=== PATIENT | female | born 1990 | race Caucasian/White ===

== ENCOUNTER 2017-01-11 22:20 | Emergency (ER) | payer OTHER ==
[2017-01-11] MEDS ORDERED: IBUPROFEN 600 MG TABLET PO STA (23:48)
[2017-01-11] MEDS ORDERED: HYDROcod/ACET 5/325 Prepack 6 PO STA (23:49)
[2017-01-11] MEDS ORDERED: IBUPROFEN 600 MG TABLET PO ONE (23:52)
[2017-01-11] MEDS ORDERED: HYDROcod/ACET 5/325 Prepack 6 PO ONE (23:52)
== END 2017-01-12 00:08 | disposition home or self-care (01) ==
DX: S93.402A Sprain of unspecified ligament of left ankle, initial encounter (principal); X50.1XXA Overexertion from prolonged static or awkward postures, initial encounter; Y93.89 Activity, other specified; Y92.007 Garden or yard of unspecified non-institutional (private) residence as the place of occurrence of the external cause; Y99.8 Other external cause status; I10 Essential (primary) hypertension; E10.9 Type 1 diabetes mellitus without complications; F17.200 Nicotine dependence, unspecified, uncomplicated
CPT/HCPCS: 99282; 99283; A9270

== ENCOUNTER 2017-06-09 21:16 | Emergency (ER) | payer OTHER ==
[2017-06-09 22:07] LABS: BILIRUBIN,URINE NEGATIVE (NEGATIVE)
[2017-06-09 22:21] LABS: HCG UR QUAL NEGATIVE; UA w/ MICROSCOPIC CHARGE YES
[2017-06-09 22:22] LABS: UR CULTURE IF IND NOT INDICATED
--- NOTE | 2017-06-09 22:25 | ED Physician Documentation ---
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 No: Fever, Nausea, Vomiting, Diarrhea, Constipation Recently seen: Clinic - Additional information Additional information: c/o midline pelvic pain x 4-5 hours. Vaginal bleeding has been ongoing ( intermittently) since mid-April. She had IUD placed 2 weeks ago. She had US (SURES[facility] ) 2 days ago, reportedly (per patient) showed left ovarian cyst and thickened endometrium. She says she wasn't having pain until tonight. Review of Systems Constitutional: denies: Fever GI: reports: Abdominal Pain (pelvic pain). denies: Nausea, Constipation, Diarrhea : reports: Vaginal bleeding. denies: Dysuria, Frequency Musculoskeletal: denies: Back pain PD PAST MEDICAL HISTORY - Past Medical History Past Medical History: Yes Cardiovascular: Hypertension Respiratory: None Neuro: Headache/migraine Endocrine/Autoimmune: Type 2 diabetes GI: None CLARITY DEVELOPER: None : None HEENT: None Psych: Anxiety Musculoskeletal: None Derm: None - Past Surgical History Past Surgical History: Yes HEENT: Tonsil/Adenoidectomy - Present Medications Home Medications: Ambulatory Orders Medication Instructions Recorded Confirmed Butalb/Acetaminophen/Caffeine PRN 05/28/15 05/28/15 [[id number] [id number]] Ciprofloxacin [Cipro] 500 mg PO Q12H 14 Days 05/28/15 Hydrocodone/Acetaminophen 1 - 2 each PO Q6H PRN #15 tablet 05/28/15 [Hydrocodon-Acetaminophen 5-325] Ondansetron Odt [Zofran] 4 mg TL Q6H PRN #10 tablet 05/28/15 HYDROcod/ACETAM 5/325 [[place] 5/325] 1 - 2 ea PO Q6H PRN #15 tablet 06/10/17 - Allergies Allergies/Adverse Reactions: Allergies Allergy/AdvReac Type Severity Reaction Status Date / Time No Known Drug Allergies Allergy Verified 05/28/15 17:00 - Social History Does the pt smoke?: No Smoking Status: Former smoker Does the pt drink ETOH?: No Does the pt have substance abuse?: No - Immunizations Immunizations are current?: Yes - POLST Patient has POLST: No PD ED PE NORMAL - Vitals Vital signs reviewed: Yes - General General: Alert and oriented X 3, No acute distress, Well developed/nourished - Cardiac Cardiac: RRR, No murmur - Respiratory Respiratory: No respiratory distress, Clear bilaterally - Abdomen Abdomen: Soft, Non tender, Non distended, Other (obese) - Back Back: No CVA TTP - Derm Derm: Normal color, Warm and dry Results - Vitals Vitals: Vital Signs - 24 hr 06/09/17 06/10/17 21:34 01:13 Temperature 36.7 C 36.7 C Heart Rate 73 75 Respiratory 18 19 Rate Blood Pressure 129/93 H 134/87 H O2 Saturation 98 96 Oxygen O2 Source Room air - Labs Labs: Laboratory Tests 06/09/17 06/09/17 06/09/17 21:41 22:56 22:56 WBC 7.1 RBC 4.20 Hgb 12.2 Hct 37.1 MCV 88.3 MCH 29.1 MCHC 33.0 RDW 14.3 Plt Count 319 MPV 7.1 L Neut # 3.2 Lymph # 3.1 Bonner # 0.6 Eos # 0.2 Baso # 0.0 Absolute Nucleated RBC 0.00 Nucleated RBCs 0.0 Sodium 137 Potassium 3.4 L Chloride 103 Carbon Dioxide 26 Anion Gap 8.0 BUN 18 Creatinine 0.9 Estimated GFR (MDRD) 75 L Glucose 97 Calcium 9.5 Urine Color RED/BLOODY Urine Clarity BLOODY Urine pH 6.0 Ur Specific [place] >=1.030 H Urine Protein 100 H Urine Glucose (UA) NEGATIVE Urine Ketones >=80 H Urine Occult Blood LARGE H Urine Nitrite NEGATIVE Urine Bilirubin NEGATIVE Urine Urobilinogen 0.2 (NORMAL) Ur Leukocyte Esterase NEGATIVE Urine RBC TNTC H Urine WBC 4-5 Ur Squamous Epith Cells NONE SEEN Urine Bacteria None Seen Ur Microscopic Review INDICATED Urine Culture Comments NOT INDICATED Urine HCG, Qual NEGATIVE PD MEDICAL DECISION MAKING - ED course Complexity details: reviewed results, re-evaluated patient, considered differential, d/w patient Departure - Departure Disposition: 01 Home, Self Care Clinical Impression: Pelvic pain Condition: Good Instructions: ED Pelvic Pain [facility] Follow-Up: Adelaide Jimenes ARNP [Primary Care Provider] - Prescriptions: HYDROcod/ACETAM 5/325 [[place] 5325] 1 - 2 ea PO Q6H PRN #15 tablet PRN Reason: Pain Discharge Date/Time: 06/10/17 01:25
[2017-06-09] MEDS ORDERED: HYDROcod/ACETAM 5/325 MG TABLET PO STA (22:46)
[2017-06-09] MEDS ORDERED: HYDROcod/ACETAM 5/325 MG TABLET ONE (22:55)
[2017-06-09 23:02] LABS: BASOPHILS % (AUTO) 0.6 %; EOSINOPHILS # (AUTO) 0.2 10^3/uL (0.0-0.7); EOSINOPHILS % (AUTO) 2.4 %; HCT - HEMATOCRIT 37.1 % (37.0-47.0); HGB - HEMOGLOBIN 12.2 g/dL (12.0-16.0); LYMPHOCYTES # (AUTO) 3.1 10^3/uL (1.5-3.5); LYMPHOCYTES % (AUTO) 43.3 %; MEAN CORPUSCULAR HEMOGLOBIN 29.1 pg (27.0-31.0); MEAN CORPUSCULAR VOLUME 88.3 fL (81.0-99.0); MEAN PLATELET VOLUME 7.1 fL (7.9-10.8); MONOCYTES # (AUTO) 0.6 10^3/uL (0.0-1.0); MONOCYTES % (AUTO) 8.7 %; NEUTROPHILS # (AUTO) 3.2 10^3/uL (1.5-6.6); RED CELL DISTRIBUTION WIDTH 14.3 % (12.0-15.0); UNCORRECTED WHITE BLOOD COUNT 7.1 x10^3/uL; WHITE BLOOD COUNT 7.1 x10^3/uL (4.8-10.8)
[2017-06-09 23:11] LABS: CALCIUM 9.5 mg/dL (8.5-10.3); CREATININE 0.9 mg/dL (0.4-1.0); POTASSIUM 3.4 mmol/L (3.5-5.0)
[2017-06-10 01:14] VITALS: BP 134/87
== END 2017-06-10 01:25 | disposition home or self-care (01) ==
LOC: ED 21:16
DX: R10.2 Pelvic and perineal pain (principal); E11.9 Type 2 diabetes mellitus without complications; Z97.5 Presence of (intrauterine) contraceptive device; Z87.891 Personal history of nicotine dependence
CPT/HCPCS: 36415; 80048; 81001; 81025; 85025; 99283; A9270; 81003; 87086